=== PATIENT | male | born 1980 | race Caucasian/White ===

== ENCOUNTER 2024-03-07 23:51 | Emergency (ER) | payer OTHER, SELFPAY ==
[~2024-03-07] VITALS: Ht 185.4 cm; Wt 106.8 kg
[2024-03-07 23:56] VITALS: TEMP 97; O2SAT 98
[2024-03-08] MEDS ORDERED: AMOX875T2 PO (02:29)
[2024-03-08] MEDS ORDERED: TRAM50TA2 PO (02:29)
[2024-03-08 02:30] VITALS: BP 161/97
[2024-03-08] MEDS: IBUPROFEN 800 MG TAB PO ONE (02:40)
[2024-03-08] MEDS: traMADol 50 MG TAB PO ONE (02:40)
[2024-03-08] MEDS: AUGMENTIN 875 MG TAB PO ONE (02:40)
== END 2024-03-08 03:04 | disposition home or self-care (01) ==
LOC: M ED 23:51
DX: K04.7 Periapical abscess without sinus (principal); F17.210 Nicotine dependence, cigarettes, uncomplicated; Z88.2 Allergy status to sulfonamides; Z88.8 Allergy status to other drugs, medicaments and biological substances; Z79.2 Long term (current) use of antibiotics; Z79.899 Other long term (current) drug therapy

== ENCOUNTER → 2024-06-21 | Outpatient (CLI) | payer MEDICAID, OTHER ==
[~2024-06-21] MED LIST: AMOX875T2 PO; TRAM50TA2 PO
[2024-06-21 18:09] LABS: APPEARANCE, URINE HAZY (CLEAR); BACTERIA, URINE AUTO NEGATIVE (NEGATIVE); BILIRUBIN, URINE AUTO NEGATIVE (NEGATIVE); BLOOD, URINE BLOOD NEGATIVE (NEGATIVE); COLOR, URINE YELLOW (YELLOW); GLUCOSE, URINE (UA) AUTO NEGATIVE (NEGATIVE); KETONE, URINE AUTO TRACE mg/dL (NEGATIVE); LEUKOCYTE ESTERASE, URINE AUTO 2+ (NEGATIVE); NITRITE, URINE AUTO NEGATIVE (NEGATIVE); PROTEIN, URINE AUTO NEGATIVE (NEGATIVE); RBC, URINE AUTO 2 /HPF (0-3); SPECIFIC GRAVITY URINE AUTO 1.017 (1.002-1.035); SQUAMOUS EPITHELIAL CELL UR AU 0 /HPF (0-6); UROBILINOGEN, URINE AUTO 0.2 mg/dL (0.0-2.0); WBC, URINE AUTO 39 /HPF (0-3)
[2024-06-21 18:57] LABS: HEMATOCRIT 45.4 % (42.0-52.0); HEMOGLOBIN 15.5 g/dl (13.5-17.5); MEAN CORPUSCULAR HEMOGLOBIN 33.1 pg (27.0-33.0); MEAN CORPUSCULAR HGB CONC 34.1 g/dl (32.0-36.5); PLATELET COUNT, AUTOMATED 380 10^3/uL (150-450); RED BLOOD COUNT 4.68 10^6/uL (4.30-6.10); WHITE BLOOD COUNT 14.3 10^3/uL (4.0-10.0)
[2024-06-21 19:26] LABS: ALKALINE PHOSPHATASE 76 U/L (40-129); ALT/SGPT 25 U/L (7.0-40); AST/SGOT 14 U/L (<34); BILIRUBIN,TOTAL 0.2 MG/DL (0.3-1.2); BLOOD UREA NITROGEN 17 MG/DL (9-23); CALCIUM LEVEL 9.6 MG/DL (8.5-10.1); CARBON DIOXIDE LEVEL 25 MMOL/L (20-31); CHLORIDE LEVEL 109 MMOL/L (98-107); CHOLESTEROL LEVEL 208 MG/DL (<200); CHOLESTEROL RISK RATIO 6.54 (<5); CREATININE FOR GFR 0.97 MG/DL (0.70-1.30); GLOMERULAR FILTRATION RATE > 60.0 (>60); GLUCOSE, FASTING 92 MG/DL (60-100); HDL CHOLESTEROL 31.8 MG/DL (>40); LDL CHOLESTEROL 147.2 MG/DL (<100); NON-HDL-C 176.2 MG/DL; POTASSIUM SERUM 4.3 MMOL/L (3.5-5.1); SODIUM LEVEL 140 MMOL/L (136-145); TOTAL PROTEIN 7.3 G/DL (5.7-8.2); TRIGLYCERIDES LEVEL 145 MG/DL (<150)
[2024-06-21 19:40] LABS: HEMOGLOBIN A1c 5.4 % (4.0-6.0)
[2024-06-21 19:52] LABS: ATYPICAL LYMPH 2 % (0-5); LYMPHOCYTES 38 % (16-44); MONOCYTES 10 % (0-5); NEUTROPHILS 50 % (28-66); PLATELET ESTIMATE NORMAL (NORMAL)
[2024-06-21 19:57] LABS: PLATELET CLUMPS SMALL AMT
== END ==
LOC: M PLAIMG 14:48
PROVIDERS: ATTEND Nurse Practitioner Family
DX: S69.92XA Unspecified injury of left wrist, hand and finger(s), initial encounter (principal); N39.0 Urinary tract infection, site not specified; X58.XXXA Exposure to other specified factors, initial encounter; Y92.9 Unspecified place or not applicable

== ENCOUNTER → 2024-09-28 | Outpatient (REF) | payer OTHER ==
[2024-09-28 19:57] LABS: ALBUMIN 3.9 G/DL (3.2-5.2); ALKALINE PHOSPHATASE 71 U/L (40-129); ALT/SGPT 21 U/L (7.0-40); AST/SGOT 15 U/L (<34); BILIRUBIN,TOTAL 0.3 MG/DL (0.3-1.2); BLOOD UREA NITROGEN 12 MG/DL (9-23); CALCIUM LEVEL 9.4 MG/DL (8.5-10.1); CARBON DIOXIDE LEVEL 26 MMOL/L (20-31); CHLORIDE LEVEL 105 MMOL/L (98-107); CHOLESTEROL LEVEL 182 MG/DL (<200); CHOLESTEROL RISK RATIO 4.82 (<5); CREATININE FOR GFR 0.83 MG/DL (0.70-1.30); GLOMERULAR FILTRATION RATE > 60.0 (>60); GLUCOSE, FASTING 84 MG/DL (60-100); HDL CHOLESTEROL 37.7 MG/DL (>40); LDL CHOLESTEROL 120.9 MG/DL (<100); NON-HDL-C 144.3 MG/DL; POTASSIUM SERUM 4.8 MMOL/L (3.5-5.1); SODIUM LEVEL 142 MMOL/L (136-145); TOTAL PROTEIN 7.4 G/DL (5.7-8.2); TRIGLYCERIDES LEVEL 117 MG/DL (<150)
[2024-09-28 20:02] LABS: THYROID STIMULATING HORMONE 2.033 uIU/ML (0.55-4.78)
[2024-09-28 20:04] LABS: HEMOGLOBIN A1c 5.1 % (4.0-6.0)
[2024-09-28 20:31] LABS: HIV 1&2 SCREEN NEGATIVE (NEGATIVE)
[2024-09-28 20:38] LABS: HEPATITIS C VIRUS ABY INDEX 0.13 INDEX (<0.8)
== END ==
LOC: M LAB REF 16:19
PROVIDERS: ATTEND Physician Assistant
DX: Z11.9 Encounter for screening for infectious and parasitic diseases, unspecified (principal); E55.9 Vitamin D deficiency, unspecified; E66.9 Obesity, unspecified

== ENCOUNTER → 2024-12-11 | Outpatient (CLI) | payer OTHER | LOC: M RAD 12:55 | PROVIDERS: ATTEND Physician Assistant | DX: N50.3 Cyst of epididymis (principal) ==

== ENCOUNTER 2024-12-15 22:46 | Emergency (ER) | payer OTHER ==
[~2024-12-15] VITALS: Ht 185.4 cm; Wt 110.5 kg
[2024-12-15 22:49] VITALS: BP 165/96; TEMP 98.6; O2SAT 99
[2024-12-16] MEDS ORDERED: PERI12LIQ (20:20)
[2024-12-16] MEDS ORDERED: AMOX500C (20:20)
[2024-12-16] MEDS ORDERED: ESCITALOPRAM (20:20)
[2024-12-16] MEDS ORDERED: AMOX875T2 PO (22:41)
== END 2024-12-16 00:49 | disposition left against medical advice (07) ==
LOC: M ED 22:46
DX: Z53.21 Procedure and treatment not carried out due to patient leaving prior to being seen by health care provider (principal)

== ENCOUNTER 2024-12-16 20:15 | Emergency (ER) | payer OTHER ==
[~2024-12-16] VITALS: Ht 185.4 cm; Wt 109.6 kg
[2024-12-16 20:18] VITALS: BP 142/97; TEMP 98.8; O2SAT 98
[2024-12-16] MEDS ORDERED: ESCITALOPRAM (20:20)
[2024-12-16] MEDS ORDERED: AMOX500C (20:20)
[2024-12-16] MEDS ORDERED: PERI12LIQ (20:20)
[2024-12-16] MEDS ORDERED: AMOX875T2 PO (22:41)
[2024-12-16] MEDS: KETOROLAC 60MG 2ML VIAL IM ONE (22:44)
[2024-12-16] MEDS: AUGMENTIN 875 MG TAB PO ONE (22:44)
== END 2024-12-16 22:52 | disposition home or self-care (01) ==
LOC: M ED 20:15
DX: K02.9 Dental caries, unspecified (principal); K08.89 Other specified disorders of teeth and supporting structures; I10 Essential (primary) hypertension; F17.200 Nicotine dependence, unspecified, uncomplicated; Z88.2 Allergy status to sulfonamides; Z88.8 Allergy status to other drugs, medicaments and biological substances; Z79.2 Long term (current) use of antibiotics; Z79.899 Other long term (current) drug therapy
CPT/HCPCS: 96372; 99283; J1100; J1885